=== PATIENT | male | born 1960 | race African-American/Black ===

== ENCOUNTER 2020-12-21 16:05 | Observation (INO) | payer MEDICARE ==
[~2020-12-21] VITALS: Ht 182.9 cm; Wt 70.3 kg
[2020-12-21 17:06] LABS: BASOPHILS % 0.5 % (0.0-1.0); EOSINOPHILS # (AUTO) 0.1 (0.0-0.4); EOSINOPHILS % 0.7 % (0.0-6.0); HEMATOCRIT 36.3 % (38.2-49.6); HEMOGLOBIN 11.5 g/dL (14.0-18.0); LYMPHOCYTES # (AUTO) 2.9 (1.0-3.2); MEAN CORPUSCULAR HEMOGLOBIN 27.5 pg (28-32); MEAN CORPUSCULAR HGB CONC 31.7 g/dL (31-35); MEAN CORPUSCULAR VOLUME 86.8 fL (81-99); MONOCYTES # (AUTO) 0.8 (0.2-0.8); MONOCYTES % 10.6 % (4.4-11.3); NEUTROPHILS # (AUTO) 3.6 (2.1-6.9); NEUTROPHILS % 48.8 % (38.7-80.0); PLATELET COUNT 213 x10e3/uL (140-360); RED BLOOD COUNT 4.18 x10e6/uL (4.3-5.7); RED CELL DISTRIBUTION WIDTH 14.7 % (11.7-14.4)
[2020-12-21 17:20] LABS: AMPHETAMINES SCREEN,URINE NEGATIVE (NEGATIVE); BENZODIAZEPINES SCREEN,URINE NEGATIVE (NEGATIVE); PHENCYCLIDINE SCREEN,URINE NEGATIVE (NEGATIVE)
[2020-12-21 17:21] LABS: CLARITY,URINE SL CLOUDY (CLEAR); COLOR,URINE STRAW (YELLOW); KETONES,URINE 1+ (NEGATIVE); LEUKOCYTE ESTERASE ,URINE NEGATIVE (NEGATIVE); NITRITE,URINE NEGATIVE (NEGATIVE); PROTEIN,URINE DIPSTICK NEGATIVE (NEGATIVE); URINE UROBILINOGEN 2 mg/dL (0.2 - 1)
[2020-12-21 17:26] LABS: SALICYLATE < 5.0 mg/dL (0-30)
[2020-12-21 17:32] LABS: AMORPHOUS SEDIMENT,URINE MANY (FEW)
[2020-12-21 18:45] LABS: ALANINE AMINOTRANSFERASE 10 IU/L (0-55); ALBUMIN 3.4 g/dL (3.5-5.0); ALBUMIN/GLOBULIN RATIO 1.1 (0.8-2.0); ALKALINE PHOSPHATASE 41 IU/L (40-150); ANION GAP 14.9 mmol/L (8-16); BLOOD UREA NITROGEN 20 mg/dL (7-26); BUN/CREATININE RATIO 23 (6-25); CARBON DIOXIDE 23 mmol/L (22-29); CHLORIDE 111 mmol/L (98-107); CREATININE, SERUM 0.86 mg/dL (0.72-1.25); EST GLOMERULAR FILTRATION RATE > 60 ML/MIN (60-); GLUCOSE 79 mg/dL (74-118); POTASSIUM 4.9 mmol/L (3.5-5.1); SODIUM 144 mmol/L (136-145)
[2020-12-21 19:09] LABS: CREATINE KINASE MB 1.3 ng/mL (0-5.0)
[2020-12-21] MEDS: DEXTROSE 5%/0.45% SOD CHL 1,000 ML IV SCH (21:56)
[2020-12-21] MEDS: ASPIRIN 300 MG SUPP PR SCH (21:56)
[2020-12-22] VITALS (9 sets, daily range): BP systolic 130–143; BP diastolic 88–99
[2020-12-22] MEDS ORDERED: DEPAKOTE ER500 MG PO ×2 (03:16)
[2020-12-22] MEDS ORDERED: DOCUSATE SODIU100 MG PO (03:16)
[2020-12-22] MEDS ORDERED: KEPPRA750 MG PO (03:16)
[2020-12-22] MEDS ORDERED: METOPROLOL SUCC50 MG PO (03:16)
[2020-12-22] MEDS ORDERED: ZYPREXA5 MG PO (03:16)
[2020-12-22] MEDS ORDERED: COGENTIN2 MG/2 ML PO (03:16)
[2020-12-22] MEDS ORDERED: PROCARDIA XL30 MG PO (03:16)
[2020-12-22] MEDS ORDERED: LEVOTHYROXINE50 MCG PO (03:16)
[2020-12-22] MEDS ORDERED: LISINOPRIL20 MG PO (03:16)
[2020-12-22] MEDS ORDERED: PROCARDIA XL30 MG (03:16)
[2020-12-22 07:02] LABS: BASOPHILS % 0.8 % (0.0-1.0); EOSINOPHILS # (AUTO) 0.1 (0.0-0.4); EOSINOPHILS % 1.1 % (0.0-6.0); HEMOGLOBIN 11.1 g/dL (14.0-18.0); LYMPHOCYTES # (AUTO) 2.5 (1.0-3.2); LYMPHOCYTES % 46.7 % (18.0-39.1); MEAN CORPUSCULAR HEMOGLOBIN 27.3 pg (28-32); MEAN CORPUSCULAR HGB CONC 31.7 g/dL (31-35); MONOCYTES # (AUTO) 0.6 (0.2-0.8); MONOCYTES % 11.9 % (4.4-11.3); NEUTROPHILS # (AUTO) 2.1 (2.1-6.9); NEUTROPHILS % 39.5 % (38.7-80.0); PLATELET COUNT 213 x10e3/uL (140-360); RED BLOOD COUNT 4.07 x10e6/uL (4.3-5.7); RED CELL DISTRIBUTION WIDTH 14.6 % (11.7-14.4)
[2020-12-22 07:19] LABS: ALANINE AMINOTRANSFERASE 8 IU/L (0-55); ALBUMIN 3.4 g/dL (3.5-5.0); ALBUMIN/GLOBULIN RATIO 1.2 (0.8-2.0); ALKALINE PHOSPHATASE 37 IU/L (40-150); ANION GAP 12.4 mmol/L (8-16); BLOOD UREA NITROGEN 19 mg/dL (7-26); BUN/CREATININE RATIO 19 (6-25); CARBON DIOXIDE 27 mmol/L (22-29); CHLORIDE 109 mmol/L (98-107); CREATININE, SERUM 1.01 mg/dL (0.72-1.25); EST GLOMERULAR FILTRATION RATE > 60 ML/MIN (60-); GLUCOSE 107 mg/dL (74-118); POTASSIUM 4.4 mmol/L (3.5-5.1); SODIUM 144 mmol/L (136-145)
[2020-12-22] MEDS: DEXTROSE 5%/0.45% SOD CHL 1,000 ML IV SCH ×2 (07:35→15:48)
[2020-12-22 07:39] LABS: CREATINE KINASE MB 1.2 ng/mL (0-5.0)
[2020-12-22] MEDS ORDERED: HYDRALAZINE HCL 20 MG/ML VIAL IV PRN (09:00)
[2020-12-22] MEDS ORDERED: MELATONIN 5 MG TABLET PO PRN (09:00)
[2020-12-22] MEDS ORDERED: LEVOTHYROXINE SODIUM 100 MCG TAB PO SCH (09:00)
[2020-12-22] MEDS ORDERED: LORAZEPAM INJ 2 MG/ML VIAL IV PRN (09:00)
[2020-12-22] MEDS ORDERED: LEVOTHYROXINE SODIUM 50 MCG TAB PO SCH (09:00)
[2020-12-22] MEDS ORDERED: ONDANSETRON HCL INJ 2MG/ML 2ML 2 MG/ML VIAL IV PRN (09:00)
[2020-12-22] MEDS ORDERED: ACETAMINOPHEN 325 MG TAB PO PRN (09:00)
[2020-12-22 09:17] LABS: CHOL/HDL RATIO 3.2 (3.9-4.7)
[2020-12-22] MEDS: LEVETIRACETAM 500 MG TAB PO SCH ×2 (09:46→16:52)
[2020-12-22] MEDS: OLANZAPINE 5 MG TAB PO SCH ×2 (09:46→16:52)
[2020-12-22] MEDS: BENZTROPINE MESYLATE 1 MG TAB PO SCH ×2 (09:46→16:52)
[2020-12-22] MEDS: DOCUSATE SODIUM 100 MG CAP PO SCH ×2 (09:46→16:52)
[2020-12-22] MEDS: DIVALPROEX SODIUM 250 MG TAB...DR PO SCH ×2 (14:46→20:45)
[2020-12-22] MEDS ORDERED: DEXTROSE 50% SYRINGE 50 ML IV PRN (15:45)
[2020-12-22] MEDS ORDERED: BENZTROPINE ME0.5 MG (16:03)
[2020-12-22] MEDS ORDERED: FAMOTIDINE 20 MG TAB PO SCH (16:30)
[2020-12-22 16:55] LABS: CREATINE KINASE MB 1.1 ng/mL (0-5.0)
[2020-12-22] MEDS ORDERED: LIPITOR20 MG PO (19:25)
[2020-12-22] MEDS ORDERED: ASPIRIN325 MG PO (19:25)
[2020-12-22] MEDS: ASPIRIN 300 MG SUPP PR SCH (20:45)
[2020-12-23] MEDS ORDERED: METOPROLOL SUCCINATE 50 MG TAB XL PO SCH (09:00)
== END 2020-12-22 21:30 ==
LOC: ER 16:42 → ERHOLD 20:49 → MED/SURG2 12-22 00:12
PROVIDERS: ADMIT Internal Medicine; ATTEND Internal Medicine
DX: I63.9 Cerebral infarction, unspecified (principal); I10 Essential (primary) hypertension; E03.9 Hypothyroidism, unspecified; G40.909 Epilepsy, unspecified, not intractable, without status epilepticus; F41.9 Anxiety disorder, unspecified; Z20.822 Contact with and (suspected) exposure to COVID-19
CPT/HCPCS: 36415 ×2; 70450; 70551; 80053 ×2; 80061; 80307; 80320; 80329 ×2; 81001; 82550 ×2; 82553 ×2; 82948; 83036; 84484 ×2; 85025 ×2; 87086; 93005; 93306; 93880; 95819; 99284; G0378 ×2; J2060; U0002